=== PATIENT | male | born 1965 | race Caucasian/White ===

== ENCOUNTER 2022-10-31 13:18 | Outpatient (CLI) | payer OTHER | END 2022-10-31 13:19 | disposition home or self-care (01) | LOC: CSHULT 13:18 | PROVIDERS: ATTEND Family Medicine | DX: M54.2 Cervicalgia (principal); M51.36 Other intervertebral disc degeneration, lumbar region; R13.10 Dysphagia, unspecified; R09.89 Other specified symptoms and signs involving the circulatory and respiratory systems; Z98.890 Other specified postprocedural states; M47.812 Spondylosis without myelopathy or radiculopathy, cervical region; E04.1 Nontoxic single thyroid nodule | CPT/HCPCS: 72040; 72100; 76536 ==

== ENCOUNTER 2022-12-06 06:06 | Day surgery (SDC) | payer OTHER ==
[2022-12-04 13:25] VITALS: BMI 20.2
[2022-12-06] MEDS ORDERED: Ketamine 50 MG/ML (10ML VIAL) ONE (07:56)
[2022-12-06] MEDS ORDERED: Lidocaine 1% PF 5 ML VIAL ONE (07:58)
[2022-12-06] MEDS ORDERED: PROPOFOL 20 ML ONE (07:58)
== END 2022-12-06 09:08 | disposition home or self-care (01) ==
LOC: CSHSDC 06:06
PROVIDERS: ATTEND Internal Medicine Gastroenterology
PROC: 0DJ08ZZ Inspection of Upper Intestinal Tract, Via Natural or Artificial Opening Endoscopic (ICD-10-PCS; principal; 2022-12-06)
PROC: 0DJD8ZZ Inspection of Lower Intestinal Tract, Via Natural or Artificial Opening Endoscopic (ICD-10-PCS; principal; 2022-12-06)
PROC: 0D757ZZ Dilation of Esophagus, Via Natural or Artificial Opening (ICD-10-PCS; principal; 2022-12-06)
DX: Z12.11 Encounter for screening for malignant neoplasm of colon (principal); K57.30 Diverticulosis of large intestine without perforation or abscess without bleeding; K62.89 Other specified diseases of anus and rectum; R13.10 Dysphagia, unspecified; K44.9 Diaphragmatic hernia without obstruction or gangrene; F32.A Depression, unspecified; F41.9 Anxiety disorder, unspecified; Z87.891 Personal history of nicotine dependence
CPT/HCPCS: J2704